=== PATIENT | female | born 1965 | race Caucasian/White ===

== ENCOUNTER 2017-10-15 08:39 | Day surgery (SDC) | payer BC ==
[~2017-10-15] VITALS: Ht 152.4 cm; Wt 70.0 kg
[~2017-10-15 08:39] MED LIST: ABILIFY5 MG PO; ALLEGRA ALLERG180 MG PO; ALLEGRA180 MG PO; ALPRAZOLAM1 MG; ALPRAZOLAM1 MG PO; AMITIZA24 MICROGR PO; AMITRIPTYLINE H10 MG PO; AMOXICILLIN500 MG PO; ANTIVERT25 MG PO; Antivert PO; B COMPLEX1 EAC2 PO; BENTYL10 MG PO; CYCLOBENZAPRINE 10 M; CYMBALTA60 MG; CYMBALTA60 MG PO; Cymbalta PO; DAYPRO600 MG PO; DESYREL100 MG PO; DOXYCYCLINE HY100 MG PO; ENDOCET 5-3251 EACH; EXCEDRIN MIGRA1 EAC3 PO; EXCEDRIN MIGRA1 EACH PO; FLEXERIL10 MG PO; FOLIC ACID; FOLIC ACID1 MG PO; Flexeril PO; Folvite PO; HYDROCHLOROTHIA25 MG PO; Hydrodiuril,Oretic,E PO; LEVO-T100 MCG PO; LEVOTHYROXINE112 MCG PO; LEVOTHYROXINE88 MCG; Levothroid,Synthroid PO; MOBIC7.5 MG PO; OMEGA 3 1,0001 EACH PO; OXYCODONE HCL5 MG; OXYCODONE HCL5 MG PO; OXYCONTIN15 MG PO; OxyCODONE PO; PROMETHAZINE HC25 M1 PO; PROTONIX40 MG PO; QUETIAPINE FUM100 MG PO; SEROQUEL; TOPAMAX100 MG; TOPAMAX50 MG PO; TOPIRAMATE50 MG; VIIBRYD1 EACH PO; XANAX1 MG; XANAX1 MG PO; Xanax PO; potassium gluconate
== END 2017-10-15 11:15 | disposition home or self-care (01) ==
LOC: CATH 08:39
DX: I87.8 Other specified disorders of veins (principal); Z45.2 Encounter for adjustment and management of vascular access device; C50.912 Malignant neoplasm of unspecified site of left female breast; C77.3 Secondary and unspecified malignant neoplasm of axilla and upper limb lymph nodes; E78.00 Pure hypercholesterolemia, unspecified; E07.9 Disorder of thyroid, unspecified; Z90.710 Acquired absence of both cervix and uterus; Z82.49 Family history of ischemic heart disease and other diseases of the circulatory system; Z82.3 Family history of stroke
CPT/HCPCS: C1751; C1894; J0690; J1644; J2250; J3010; S0020

== ENCOUNTER → 2018-03-25 | Outpatient (CLI) | payer BC, OTHER ==
[~2018-03-25] MED LIST changes: +K-DUR20 MEQ PO; +ZOFRAN8 MG PO
== END | disposition home or self-care (01) ==
LOC: CDC 10:24
DX: Z01.810 Encounter for preprocedural cardiovascular examination (principal); C50.412 Malignant neoplasm of upper-outer quadrant of left female breast
CPT/HCPCS: 93000

== ENCOUNTER 2018-04-08 06:34 | Day surgery (SDC) | payer BC, OTHER ==
[~2018-04-08] VITALS: Ht 152.4 cm; Wt 74.0 kg
[~2018-04-08 06:34] MED LIST changes: +ROXICODONE15 MG PO; -TOPAMAX100 MG; +TOPAMAX100 MG PO; +VENTOLIN HFA18 GM IH
[2018-04-08 07:20] VITALS: BP 97/55
[2018-04-08] MEDS ORDERED: HYDROMORPHONE HC4 MG PO (16:01)
[2018-04-08 17:25] VITALS: BP 134/67
[2018-04-08 18:32] VITALS: BP 116/62
== END 2018-04-08 19:05 | disposition home or self-care (01) ==
LOC: NUC 06:34 → SDC 06:34 → NUC 08:30 → SDC 08:30 → NUC 04-09 08:00
DX: C50.412 Malignant neoplasm of upper-outer quadrant of left female breast (principal); C77.9 Secondary and unspecified malignant neoplasm of lymph node, unspecified; Z17.0 Estrogen receptor positive status [ER+]; E88.1 Lipodystrophy, not elsewhere classified; E03.9 Hypothyroidism, unspecified; F31.9 Bipolar disorder, unspecified; K21.9 Gastro-esophageal reflux disease without esophagitis; Q61.9 Cystic kidney disease, unspecified; E78.5 Hyperlipidemia, unspecified; Z80.1 Family history of malignant neoplasm of trachea, bronchus and lung; Z83.49 Family history of other endocrine, nutritional and metabolic diseases; Z82.49 Family history of ischemic heart disease and other diseases of the circulatory system; Z92.21 Personal history of antineoplastic chemotherapy
CPT/HCPCS: 78195; 78999; 88305; 88307; 88341 TC; 88342 TC; A9541; J0131; J0690; J1100; J2250; J2405; J3010; Q0175; S0020

== ENCOUNTER → 2018-05-24 | Outpatient (CLI) | payer BC, OTHER ==
[~2018-05-24] MED LIST changes: +HYDROMORPHONE HC4 MG PO
== END | disposition home or self-care (01) ==
LOC: AMB 10:12
PROC: 0JPT3WZ Removal of Totally Implantable Vascular Access Device from Trunk Subcutaneous Tissue and Fascia, Percutaneous Approach (ICD-10-PCS; principal; 2018-05-24)
DX: Z45.2 Encounter for adjustment and management of vascular access device (principal); I87.8 Other specified disorders of veins; Z92.21 Personal history of antineoplastic chemotherapy